=== PATIENT | male | born 1990 | race Caucasian/White ===

== ENCOUNTER → 2025-04-09 | Day surgery (SDC) | payer MEDICARE, MEDICAID ==
[~2025-04-09] VITALS: Ht 182.8 cm; Wt 104.3 kg
[~2025-04-09] MED LIST: ACETAMINOPHEN 100 ML IV ONE; Bacitracin Zinc/Neomycin/Pol 0.9 GM PACKET T ONE; Bupivacaine Hydrochloride/Ep2 30 ML VIAL ONE; Dexamethasone Sodium Phospha 4 MG/ML VIAL IV ONE; GLYCOPYRROLATE IN WATER/PF 0.4 MG/2 ML SYRINGE IV ONE; Ketamine Hydrochloride 50 MG/5 ML SYRINGE IV ONE; Lidocaine Hydrochloride 5 ML VIAL IV ONE; Midazolam Hydrochloride 2 MG/2 ML VIAL IV ONE; Ondansetron Hydrochloride 4 MG/2 ML VIAL IV ONE; Oxymetazoline Hydrochloride Nasal 15 ml bottle NAS ONE; PROPOFOL 200 MG/20 ML VIAL IV ONE; Phenylephrine Hydrochloride 1 MG/10 ML SYRINGE IV ONE; ROCURONIUM BROMIDE 50 MG/5 ML SYRINGE IV ONE; SEVOFLURANE 250 ML BOT INH ONE; SODIUM CHLORIDE 0.9% 1,000 ML IV ONE; SODIUM CHLORIDE 0.9% 100 ML IV ONE; SUGAMMADEX SODIUM 200 MG/2 ML VIAL IV ONE; dexmedeTOMIDine HCL 200 MCG/2 ML VIAL IV ONE; fentaNYL CITRATE 100 MCG/2 ML VIAL IV ONE
[2025-04-09 07:00] VITALS: BP 136/85
[2025-04-09 09:52] VITALS: BP 150/75
[2025-04-09 10:07] VITALS: BP 131/90
[2025-04-09 10:22] VITALS: BP 136/84
[2025-04-09 10:37] VITALS: BP 122/85
[2025-04-09 10:52] VITALS: BP 132/82
== END | disposition home or self-care (01) ==
LOC: SDC 04-05 09:30
PROVIDERS: ATTEND Dentist General Practice
DX: K02.9 Dental caries, unspecified (principal); K05.6 Periodontal disease, unspecified; F41.9 Anxiety disorder, unspecified; F17.210 Nicotine dependence, cigarettes, uncomplicated